=== PATIENT | female | born 1975 | race Caucasian/White ===

== ENCOUNTER 2016-07-18 16:56 | Emergency (ER) | payer OTHER ==
[~2016-07-18] VITALS: Ht 167.6 cm; Wt 104.5 kg
[~2016-07-18 16:56] MED LIST: CYCL10TA9 PO; HYDR-4003 PO; OMEP20CA11 PO
[2016-07-18 17:11] VITALS: BP 134/93; PULSE 93; RESP 28; O2SAT 92
== END 2016-07-18 18:30 | disposition left against medical advice (07) ==
LOC: SED 16:56
DX: Z53.21 Procedure and treatment not carried out due to patient leaving prior to being seen by health care provider (principal)